=== PATIENT | male | born 1935 | race Caucasian/White ===

== ENCOUNTER 2017-11-19 11:02 | Inpatient (IN) | payer OTHER ==
[~2017-11-19] VITALS: Ht 170.2 cm; Wt 45.4 kg
[~2017-11-19 11:02] MED LIST: CARBIDOPA-LEVO1 TAB; ZOLOFT20 MG/ML
[2017-11-19] MEDS ORDERED: DIOVAN40 MG (13:58)
[2017-11-19] MEDS ORDERED: ACID CONTROL150 MG (13:58)
[2017-11-19] MEDS ORDERED: ATORVASTATIN CA10 MG (13:59)
[2017-11-19] MEDS ORDERED: DONEPEZIL HCL O10 MG (13:59)
[2017-11-19] MEDS ORDERED: XANAX0.25 MG (13:59)
[2017-11-28] MEDS ORDERED: CEPHALEXIN500 MG PO (11:19)
== END 2017-11-28 18:40 | disposition home or self-care (01) | DRG 871 ==
LOC: ER 11:02 → MEDJ 15:39 → SURH 15:39 → MEDJ 18:27
PROC: 5A09457 Assistance with Respiratory Ventilation, 24-96 Consecutive Hours, Continuous Positive Airway Pressure (ICD-10-PCS; principal; 2017-11-19)
PROC: 3E0F7GC Introduction of Other Therapeutic Substance into Respiratory Tract, Via Natural or Artificial Opening (ICD-10-PCS; 2017-11-19)
PROC: 4A033R1 Measurement of Arterial Saturation, Peripheral, Percutaneous Approach (ICD-10-PCS; 2017-11-19)
PROC: 3E0336Z Introduction of Nutritional Substance into Peripheral Vein, Percutaneous Approach (ICD-10-PCS; 2017-11-20)
PROC: 30233N1 Transfusion of Nonautologous Red Blood Cells into Peripheral Vein, Percutaneous Approach (ICD-10-PCS; 2017-11-26)
DX: A41.9 Sepsis, unspecified organism (principal); J18.9 Pneumonia, unspecified organism; J96.01 Acute respiratory failure with hypoxia; E87.0 Hyperosmolality and hypernatremia; N17.8 Other acute kidney failure; B37.0 Candidal stomatitis; B37.49 Other urogenital candidiasis; R65.20 Severe sepsis without septic shock; E86.0 Dehydration; Z66 Do not resuscitate; G20 Parkinson's disease; F02.80 Dementia in other diseases classified elsewhere, unspecified severity, without behavioral disturbance, psychotic disturbance, mood disturbance, and anxiety; I10 Essential (primary) hypertension; E78.4 Other hyperlipidemia; D69.59 Other secondary thrombocytopenia; B95.61 Methicillin susceptible Staphylococcus aureus infection as the cause of diseases classified elsewhere; D64.89 Other specified anemias; E87.6 Hypokalemia